=== PATIENT | female | born 1975 | race Caucasian/White ===

== ENCOUNTER → 2016-12-20 | Outpatient (CLI) | payer BC ==
--- NOTE | 2016-12-20 12:24 | KCIC ---
PROCEDURE Right breast ultrasound. HISTORY History of breast cysts. Painful lumps which have resolved at 8 through 10 o'clock in the right breast. Clinician also felt lump in the right breast at 2-3 o'clock. COMPARISON Bilateral mammogram performed at [facility] April 12, 2016. FINDINGS Ultrasound imaging was performed by hybrid technologist. Ultrasound imaging was performed from 8 o'clock through 10 o'clock. No solid or cystic masses are identified. Ultrasound imaging was formed of the right breast from 2 o'clock through 4 o'clock. No solid or cystic masses are identified. IMPRESSION No sonographic abnormalities are seen in areas of clinical concern. Recommend return to annual screening mammography. Note is made that patient is due for annual screening in March 2017. BIRADS: 2 - Benign Finding(s) Electronically signed by: Patric Christianson MD (Dec 20, 2016 12:23:06)
== END | disposition home or self-care (01) ==
LOC: KCIC US 11:57
PROVIDERS: ATTEND Physician Assistant Medical
DX: N63 Unspecified lump in breast (principal)
CPT/HCPCS: 76641